=== PATIENT | female | born 1950 | race Caucasian/White ===

== ENCOUNTER → 2018-02-14 21:01 | Outpatient (CLI) | payer MEDICARE ==
[2016-01-05 06:50] VITALS: BMI 26.5
[~2018-02-14 21:01] MED LIST: ALENDRONATE SOD70 MG PO; CALCIUM 600 +1 EAC3 PO; LOTREL 10/20 CA1 CAP PO; ULTRAM50 MG PO; ZANAFLEX4 MG PO; [UNRECOGNIZED DRUG - REMARK]
== END | disposition home or self-care (01) ==
LOC: D.MAMMO 11:00
DX: Z12.31 Encounter for screening mammogram for malignant neoplasm of breast (principal)

== ENCOUNTER 2019-12-18 09:00 | Outpatient (CLI) | payer MEDICARE ==
[2016-01-05 06:50] VITALS: BMI 26.5
== END 2019-12-18 10:00 | disposition home or self-care (01) ==
LOC: D.MAMMO 09:00
PROVIDERS: ATTEND Family Medicine
DX: Z12.31 Encounter for screening mammogram for malignant neoplasm of breast (principal)